=== PATIENT | male | born 1935 | race Caucasian/White ===

== ENCOUNTER → 2019-02-26 13:05 | Outpatient (CLI) | payer MEDICARE, SELFPAY ==
[2016-11-15 12:55] VITALS: BMI 28.2
[2019-02-26 14:07] LABS: PSA,Total- Diagnostic 9.11 ng/mL (0.0-4.0)
== END ==
PROVIDERS: Family Provider Family Medicine; PCP Family Medicine; Referring Provider Urology; Visit Provider Urology
DX: R97.20 Elevated prostate specific antigen [PSA] (principal)
CPT/HCPCS: 36415; 84153

== ENCOUNTER 2019-09-17 11:00 | Outpatient (RCR) | payer MEDICARE, SELFPAY ==
--- NOTE | 2019-09-12 07:31 | HP.OTEVAL_ITS ---
Patient's Visit Information MIKE JANG is a 83 year old M, referred to Occupational Therapy by Dr. Bob De La Cruz MD, with a diagnosis of right and left hand pain. Date of Evaluation: 09/08/19 Occupational Therapist: Rashmi Alcaraz, OTR/[place], CHT - Subjective This 83year old male was seen for OT eval with dx bilateral hand pain. past hx of bilateral CTS with [facility]. triggering for last year states would come and go just has been present more since . thumb pain triggered by picking up suit case. pt would like to decrease triggers and pain to return to performing ADLs and IADLs by d/d - Pain left hand 0 Pain Intensity Range: 3, 8 - ROM ROM Comments: ROM is WNL - Strength [employer]: right 25# left 10# with pain Lateral Pinch: right 14# left 14# Tripod Pinch: right 10# left 12# - Sensation Sensation Comments: denies - Quick DASH-Disab of Arm,Shoulder& Hand Quick DASH Score: 27.2725 - Goals Goal:: pt will demo a increase in bilateral hand strength by 20# to increase ind with IADLs by d/c Goal:: pt will demo the ability to form a composite first without triggering by d/c Goal:: pt will report pain no greater than 1/10 with use of hands with ADLs and IADLS by d/c Goal:: Pt will demo understanding of joint protection and ergonomics when performing BADLs and IADLs by d/c. Pt will demo understanding of adaptive Equipment use to decrease stress on joints to allow pt to perform BADSL and IADLS at CALLIE level. - Rehabilitation General Assessment: Pt demo with positive triggering, thumb pain. due to limitations of hand pain and triggering pt having difficulty performing ADLS and IADLS INd. Pt would benefit from skilled OT services 2x week for 4 weeks to decrease inflamation of flexor tendons, provide ed. to pt on joint protection and ad. eq. zeny. possible use of orthosis. Pt demo understanding of therapist explination of dx and agree to POC Rehabilitation Potential: Good - Anticipated Interventions A/AAROM/PROM, Strengthening, Modalities, Orthoses, Joint Protection/Energy Conservation - Visit Plan Frequency: 1-2x /Week Duration: 4 Weeks TEXT: Thank you for the opportunity to evaluate your patient. For Medicare and Medicare HMO plans, please review the plan of care and approve it. It will need to be FAXED BACK to us at [phone] for Medicare purposes. Please let me know if there are questions or concerns regarding this plan of care. Physician Signature: Date:
--- NOTE | 2020-01-14 08:16 | HP.OT.NRP ---
MIKE JANG was seen in my office for initial evaluation on 09/08/19. The following Plan of Care was established for this patient: Initial Frequency: 1-2x /Week Initial Duration: 4 Weeks Plan: discharge until possibly Dr visit Anticipated Interventions: A/AAROM/PROM, Strengthening, Modalities, Orthoses, Joint Protection/Energy Conservation This patient was last seen in our office 09/17/19. Pertinent comments regarding their Occupational therapy will appear below: Pt was seen for 3 OT visits- pt has not scheduled further apts and is D/c at this time due to time lapse in OT services. At this point I will be discontinuing this patient from occupational therapy. I would be happy to see this patient again in the future if found appropriate by the physician. Thank you! Rashmi Alcaraz, OTR/L, CHT
== END 2019-09-17 19:00 | disposition home or self-care (01) ==
LOC: OT 11:00
PROVIDERS: PCP Family Medicine; Referring Provider Specialist; Visit Provider Specialist
DX: M79.641 Pain in right hand (principal); M79.642 Pain in left hand; M79.632 Pain in left forearm
CPT/HCPCS: 97035; 97140; 97166; 97530

== ENCOUNTER 2020-11-10 15:43 | Outpatient (CLI) | payer MEDICARE, SELFPAY ==
[2020-11-10 16:02] VITALS: BP 144/58; PULSE 76; RESP 16; TEMP 37.3; O2SAT 95; BMI 26.7
[2020-11-10] MEDS: 0.9% Saline Lock 10 ML Syringe IV (16:06)
[2020-11-10 16:35] VITALS: BP 137/54; PULSE 65; RESP 16; TEMP 37.3; O2SAT 96
[2020-11-10 18:06] VITALS: BP 144/56; PULSE 64; RESP 16; TEMP 37.1; O2SAT 97
== END 2020-11-10 17:35 | disposition home or self-care (01) ==
LOC: MS3OUT 15:43 → MS3 15:44
PROVIDERS: PCP Family Medicine; Referring Provider Nurse Practitioner Adult Health; Visit Provider Nurse Practitioner Adult Health
DX: Z23 Encounter for immunization (principal); U07.1 COVID-19
CPT/HCPCS: J7050; M0243; A4216; Q0244

== ENCOUNTER 2021-04-26 12:35 | Outpatient (CLI) | payer MEDICARE, SELFPAY ==
[2021-04-26 13:44] LABS: PSA,Total- Diagnostic 8.61 ng/mL (0.0-4.0)
== END 2021-04-26 23:59 | disposition home or self-care (01) ==
PROVIDERS: PCP Family Medicine; Visit Provider Urology
DX: R97.20 Elevated prostate specific antigen [PSA] (principal)
CPT/HCPCS: 36415; 84153

== ENCOUNTER → 2022-05-08 | Outpatient (CLI) | payer MEDICARE, SELFPAY ==
[2022-05-08 15:46] LABS: PSA,Total- Diagnostic 9.66 ng/mL (0.0-4.0)
== END | disposition home or self-care (01) ==
LOC: LAB 14:51
PROVIDERS: PCP Family Medicine; Visit Provider Registered Nurse
DX: R97.20 Elevated prostate specific antigen [PSA] (principal)
CPT/HCPCS: 36415; 84153

== ENCOUNTER → 2023-10-08 | Outpatient (CLI) | payer MEDICARE, SELFPAY ==
[2023-10-08 14:13] LABS: PSA,Total- Diagnostic 6.17 ng/mL (0.0-4.0)
== END | disposition home or self-care (01) ==
LOC: LAB 13:20
PROVIDERS: PCP Family Medicine; Referring Provider Urology; Visit Provider Urology
DX: R97.20 Elevated prostate specific antigen [PSA] (principal)
CPT/HCPCS: 36415; 84153